=== PATIENT | female | born 1985 | race Caucasian/White ===

== ENCOUNTER 2018-02-21 17:09 | Emergency (ER) | payer OTHER ==
[~2018-02-21] VITALS: Ht 170.2 cm; Wt 60.8 kg
[2018-02-21 17:25] VITALS: BP 124/84
[2018-02-21] MEDS ORDERED: TETANUS-DIPTH-ACEL PERTUSSIS 0.5ML SYRG IM ONE (19:00)
[2018-02-22 10:17] LABS: Hepatitis B Surface Antibody Positive
[2018-02-22 11:19] LABS: Hepatitis B Surface Antigen Negative (Negative)
== END 2018-02-21 19:37 | disposition home or self-care (01) ==
LOC: ER 17:09
DX: S61.230A Puncture wound without foreign body of right index finger without damage to nail, initial encounter (principal); Z91.040 Latex allergy status; W46.0XXA Contact with hypodermic needle, initial encounter; Y93.89 Activity, other specified; Y99.0 Civilian activity done for income or pay; Y92.89 Other specified places as the place of occurrence of the external cause
CPT/HCPCS: 36415; 86703; 86706; 86803; 87340; 90471; 90715